=== PATIENT | female | born 1970 | race Caucasian/White ===

== ENCOUNTER 2019-03-01 19:47 | Emergency (ER) | payer SELFPAY ==
[2019-03-01 20:01] VITALS: BP 117/51; PULSE 87; TEMP 98.2; BMI 27.1
[2019-03-01 20:54] LABS: HEMATOCRIT 31.2 % (32.4-45.2); HEMOGLOBIN 10.4 GM/dL (10.7-15.3); MCH 27.9 pg (25.7-33.7); MCHC 33.2 g/dl (32.0-36.0); MEAN CELL VOLUME 83.8 fl (80-96); MEAN PLT VOLUME 8.2 fl (7.5-11.1); RBC 3.72 M/mm3 (3.60-5.2); RDW 31.4 % (11.6-15.6); WHITE BLOOD COUNT 5.3 K/mm3 (4.0-10.0)
[2019-03-01 21:10] LABS: INR 0.88 (0.83-1.09); PROTHROMBIN TIME (PATIENT) 10.4 SEC (9.7-13.0)
--- NOTE | 2019-03-01 21:10 | PDOC ---
History of Present Illness - General Chief Complaint: Shortness of Breath Stated Complaint: ABNORMAL LABS Time Seen by Provider: 03/01/19 20:20 History Source: Patient Exam Limitations: Language Barrier - History of Present Illness Initial Comments: 03/01/19 21:03 48y F with PMH of BIB presenting to ED with complaints of SOB, palpitations that started at 6pm today which has now resolved. Patient is currently on day 5 of her cycle and says that on the second day she had heavy bleeding. She usually has these symptoms during her periods. She said she went to her PMD office earlier this week and was told her hgb is 7.7; she does not know what her level normally is. She denies rectal bleeding, vomiting, loc, chest pain, sob, cough, congestion, n/v/d. She states her pmd told her to go to the emergency room if she experiences weakness, lightheadedness, sob. PMD: A PMH: see hpi PSH: Meds: iron Social: denies Allergies: nkda Past History - Past Medical History Allergies/Adverse Reactions: Allergies Allergy/AdvReac Type Severity Reaction Status Date / Time No Known Allergies Allergy Verified 03/01/19 20:29 Anemia: Yes COPD: No - Psycho Social/Smoking Cessation Hx Smoking History: Never smoked Review of Systems - Review of Systems Constitutional: No: Symptoms Reported HEENTM: No: Symptoms Reported Respiratory: Yes: See HPI Cardiac (ROS): Yes: See HPI ABD/GI: No: Symptoms Reported : No: Symptoms Reported Musculoskeletal: No: Symptoms Reported Integumentary: No: Symptoms Reported Neurological: No: Symptoms reported *Physical Exam - Vital Signs Last Vital Signs Temp Pulse Resp BP Pulse Ox 98.2 F 87 19 117/51 L 99 03/01/19 19:56 03/01/19 19:56 03/01/19 19:56 03/01/19 19:56 03/01/19 19:56 - Physical Exam General Appearance: Yes: Nourished, Appropriately Dressed. No: Apparent Distress HEENT: positive: EOMI, RAJENDRA, Pale Conjunctivae Neck: positive: Trachea midline, Supple. negative: Lymphadenopathy (R), Lymphadenopathy (L) Respiratory/Chest: positive: Lungs Clear, Normal Breath Sounds. negative: Chest Tender, Crackles, Rales, Rhonchi, Stridor, Wheezing Cardiovascular: positive: Regular Rhythm, Regular Rate, S1, S2. negative: Edema , JVD, Murmur Vascular Pulses: Dorsalis-Pedis (R): 2+, Doralis-Pedis (L): 2+ Gastrointestinal/Abdominal: positive: Normal Bowel Sounds, Soft. negative: Tender Musculoskeletal: negative: CVA Tenderness Extremity: positive: Normal Capillary Refill. negative: Swelling, Calf Tenderness, Erythema Integumentary: positive: Normal Color, Dry, Warm. 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 outpatient hgb 7.7 denies symptoms at this time vitals: slight hypotension otherwise wnl ddx includes but not limited to symptomatic anemia 2/2 vaginal bleeding, acs, pe , infectious causes labs with trop, ts, coags, chem, cxr, ekg ekg: no signs of acute ischemia pt refusing cxr. hgb 10. chem still pending. pt refusing cxr because she does not want high bill. pt given reason as to why cxr ordered, does not want it done. understands consequences of refusing workup. will sign AMA. given cardiology f/u and return precautions. advised to f/u with pmd. Discharge - Discharge Information Problems reviewed: Yes Clinical Impression/Diagnosis: Anemia Qualifiers: Anemia type: iron deficiency Iron deficiency anemia type: unspecified iron deficiency Qualified Code(s): D50.9 - Iron deficiency anemia, unspecified Condition: Good Disposition: AGAINST MEDICAL ADVICE - Admission No - Follow up/Referral Referrals: Dakota Sanchez [Primary Care Provider] - Francia Graham MD [Staff Physician] - - Patient Discharge Instructions Patient Printed Discharge Instructions: DI for Iron Deficiency Anemia-Adult Additional Instructions: Hoy lo vieron en la jose de emergencias por falta de aire debido a la anemia. La hemoglobina aqu es 10. No necesita sherwin transfusin en karen momento. No queras sherwin radiografa. William sherwin ryan con meehan mdico la prxima semana con respecto a esta visita al [place]. Xiao recomiendo angella a un cardilogo. La informacin se proporciona a continuacin. Regrese a la jose de emergencias si se siente mareado, tiene mareos, falta de aliento o si desarrolla algn sntoma nuevo o preocupante. Tyson You were seen in the emergency room today for shortness of breath due to anemia. The hemoglobin here is 10. You do not need a transfusion at this time. You did not want an Xray. Please make an appointment with your doctor next week regarding this ED visit. I also recommend seeing a associate professor of medicine. Information is provided below. Come back to the emergency room if you feel lightheaded, have dizziness, feel short of breath or if any new or concerning symptom develops. Thank you Print Language: LAO - Post Discharge Activity
--- NOTE | 2019-03-01 21:39 | PDOC ---
Attending Attestation - Resident Resident Name: Fanny Mosley - ED Attending Attestation I have performed the following: I have examined & evaluated the patient, The case was reviewed & discussed with the resident, I agree w/resident's findings & plan - HPI HPI: 03/01/19 23:43 see resident hpi - Physicial Exam PE: 03/01/19 23:44 agree with resident exam - Medical Decision Making 03/01/19 23:44 48-year-old female with palpitations and hand tingling, now resolved Plan for labs, EKG chest x-ray Patient has refused chest x-ray in the emergency department stating "it is too expensive " Pending lab work she will be signing out AGAINST MEDICAL ADVICE, she was made aware that without imaging she may have undiagnosed conditions that will affect her prognosis She has agreed to follow-up outpatient for further evaluation She is awake alert oriented x4 and able to communicate her needs This was discussed with the patient in Polish
[2019-03-01 21:45] LABS: ANISOCYTOSIS 3+; PLATELET COUNT 279 K/MM3 (134-434); PLATELET ESTIMATE ADEQUATE; TARGET CELLS 1+
[2019-03-01 22:38] LABS: EPI CELLS 1.5 /HPF (0-5/HPF); HYALINE CASTS 1 /lpf (0-8); PH,URINE 8.5 (5.0-8.0); URINE APPEARANCE CLEAR; URINE BACTERIA 4.5 /hpf (NEGATIVE); URINE BILIRUBIN NEGATIVE (NEGATIVE); URINE COLOR YELLOW; URINE GLUCOSE (UA) NEGATIVE (NEGATIVE); URINE KETONE NEGATIVE (NEGATIVE); URINE LEUK ESTERASE NEGATIVE (NEGATIVE); URINE NITRITE NEGATIVE (NEGATIVE); URINE PROTEIN NEGATIVE (NEGATIVE); URINE RBC 64 /hpf (0-4); URINE WBC 1 /hpf (0-5)
[2019-03-02 00:10] LABS: ALBUMIN 4.1 g/dl (3.4-5.0); ALK PHOS 57 U/L (45-117); ANION GAP 3 MMOL/L (8-16); BILIRUBIN,TOTAL 0.2 mg/dL (0.2-1); BLOOD UREA NITROGEN 15.4 mg/dL (7-18); CHLORIDE 109 mmol/L (98-107); CO2 28 mmol/L (21-32); CREATININE 0.7 mg/dL (0.55-1.3); GLUCOSE,RANDOM 100 mg/dL (74-106); POTASSIUM 3.9 mmol/L (3.5-5.1); SGOT/AST 24 U/L (15-37); SGPT/ALT 21 U/L (13-61); SODIUM 140 mmol/L (136-145); TOT PROT 6.9 g/dl (6.4-8.2)
--- NOTE | 2019-03-03 10:18 | EKG ---
Test Reason : Blood Pressure : / mmHG Vent. Rate : 082 BPM Atrial Rate : 082 BPM P-R Int : 142 ms QRS Dur : 070 ms QT Int : 340 ms P-R-T Axes : 050 -21 017 degrees QTc Int : 397 ms NORMAL SINUS RHYTHM LOW VOLTAGE QRS NONSPECIFIC ST ABNORMALITY ABNORMAL ECG NO PREVIOUS ECGS AVAILABLE Confirmed by ERICA WALLACE, ALEJANDRINA ([id number]) on 03/03/2019 10:18:07 AM Referred By: Confirmed By:ALEJANDRINA MALDONADO MD
== END 2019-03-01 23:40 | disposition left against medical advice (07) ==
LOC: JER 19:47
DX: B50.9 Plasmodium falciparum malaria, unspecified (principal)
CPT/HCPCS: 36415; 80053; 81003; 84484; 85025; 85610; 86850; 86900; 86901; 93005; 93010; 99283-25